=== PATIENT | female | born 1940 | race Caucasian/White ===

== ENCOUNTER 2021-01-30 08:59 | Emergency (ER) | payer OTHER, MEDICARE ==
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
--- NOTE | 2021-02-01 09:26 | CR ---
Date of Service: 01/30/21 Clinical Data: rib pain PA CHEST AND LEFT RIBS: The heart size is normal. The aorta is calcified and ectatic. The lungs are clear. No pneumothorax. No pleural effusions. There is diffuse osteopenia. No displaced fractures. There is degenerative disk disease throughout the thoracic and lumbar spine. No other significant findings. [id number] [facility]
== END 2021-01-30 14:31 | disposition home or self-care (01) ==
LOC: LB.ED 08:59
DX: R07.81 Pleurodynia (principal); E78.00 Pure hypercholesterolemia, unspecified; I10 Essential (primary) hypertension; Z88.1 Allergy status to other antibiotic agents; Z79.82 Long term (current) use of aspirin; Z79.899 Other long term (current) drug therapy; V49.40XA Driver injured in collision with unspecified motor vehicles in traffic accident, initial encounter; Y92.410 Unspecified street and highway as the place of occurrence of the external cause
CPT/HCPCS: 71101-LT; 99284-25